=== PATIENT | female | born 1955 | race Caucasian/White ===

== ENCOUNTER 2017-02-26 13:47 | Inpatient (IN) | payer BC ==
--- NOTE | ~2017-02-26 | HP ---
History And Physical [facility] [address] [place]. [address] NAME: VAMSHI BUTLER : 59 STATUS : ADM Al PAT#: [id number] AGE: 61 ADM/REG DATE : 02/26/17 MR#: [id number] REPORT SERV DATE: 02/26/17 DICTATED BY: RADHA CHRISTIANSON DATE: 02/26/17 REPORT STATUS : Draft TRANSCRIBED BY: MODL DATE: 02/26/17 DATE OF ADMISSION: 02/26/2017 CHIEF COMPLAINT: Increasing shortness of breath for couple of months and abnormal labs at her primary care provider yesterday. HISTORY OF PRESENT ILLNESS: This is a very pleasant 61-year-old female. She has a history of hypertension, history of anxiety disorder, prior history of anemia for which she has been on iron in the past, history of degenerative joint disease, and osteoarthritis. She had a colonoscopy couple of years ago by Dr. Au, which according to the patient was normal. Presenting to [facility] after her primary care provider, Dr. Ngoc Espinal called her since she had lab work, which showed that she has been severely anemic. According to the patient, she had some blood work last year in her office and she remembered at that time, she is telling me that her hemoglobin was 9. She has been on iron in the past, but she could not tolerate because of the constipation, and as a result, she has not been on iron recently. She has progressive shortness of breath with exertion as well as some weakness, but she is denying any signs of GI bleed like hematemesis, melena, hematochezia. No red blood per rectum. No melena. No hematuria. No vaginal bleed. No other complaints. She has a blood work done at her primary care provider yesterday and she has been found profoundly anemic, and as a result, she has been sent to [facility] for further evaluation and treatment. The patient does not have any recent hospitalizations. After initial evaluation in the emergency room, Hospitalist Service has been asked for admission, further evaluation, and treatment. PAST MEDICAL HISTORY: Significant for hypertension, anxiety disorder, degenerative joint disease, osteoarthritis. PAST SURGICAL HISTORY: Tubal ligation, and left total knee replacement in 2016. SOCIAL HISTORY: Denies tobacco, alcohol, or IV drugs. FAMILY HISTORY: Significant for coronary artery disease. ALLERGIES: SHE IS ALLERGIC TO SULFA DRUGS. MEDICATIONS: At home include Abilify, aspirin, calcium, Pristiq, hydrochlorothiazide, and trazodone. REVIEW OF SYSTEMS: A 14-point review of systems has been obtained and pertinent positive has been listed into the history of present illness. Otherwise, negative except those underlying above. PHYSICAL EXAMINATION: VITAL SIGNS: The patient currently is afebrile. Blood pressure is 134/62, heart rate 90, respiratory rate 16, saturating 98% on room air. GENERAL: She is a very pleasant, well-developed, well-nourished female, in no acute History And Physical [address] [address] NAME: VAMSHI BUTLER : 59 STATUS : ADM Al PAT#: [id number] AGE: 61 ADM/REG DATE : 02/26/17 MR#: [id number] REPORT SERV DATE: 02/26/17 DICTATED BY: RADHA CHRISTIANSON DATE: 02/26/17 REPORT STATUS : Draft TRANSCRIBED BY: YULI DATE: 02/26/17 distress. She is alert and oriented x3. She is nonfocal. She follows all her commands appropriately. HEENT: Pupils are equal, round, and reactive to light. Extraocular movements intact. No JVD. No lymphadenopathy. No thyromegaly appreciated. CHEST: Bilateral air entry. Clear anteroposterior. No wheezes, crackles, or rhonchi appreciated. CARDIOVASCULAR: She has regular rate and rhythm. S1, S2 positive. No S3, no S4. No murmurs, rubs, or gallops appreciated. ABDOMEN: Soft with positive bowel sounds. Nontender. No guarding. No rebound. EXTREMITIES: No clubbing, cyanosis, or edema. NEUROLOGY: The patient is alert and oriented x3. She is nonfocal. She follows all her commands appropriately. LABORATORY DATA: Labs from today include sodium 139, potassium is 3.5, chloride 103, CO2 of 31, BUN 25, creatinine 1.31, glucose is 96. Total bilirubin is 0.3, alkaline phosphatase 91, ALT 16, AST 13. White count is 6.7, hemoglobin 5.7, hematocrit is 21, MCV 63, platelets are 448. Her INR is 1.1. Her EKG shows normal sinus rhythm with sinus arrhythmia and nonspecific T-wave abnormalities. ASSESSMENT: This is a very pleasant 61-year-old female with 1. Symptomatic anemia, unclear etiology. 2. History of depression and anxiety. 3. Mild acute kidney injury. 4. Degenerative joint disease, osteoarthritis. PLAN: 1. The patient is going to be admitted to Hospitalist Service for observation. We are going to transfuse her three units of packed red blood cells and H and H q.8 hours. Today, we are going to check all her anemia studies including her ferritin, iron, total iron-binding capacity, vitamin B12, and folic acid. Check a peripheral smear, guaiac all of her stools, and transfuse as indicated. Place her on Protonix IV b.i.d. and consult Dr. Au for further recommendation. 2. History of anxiety disorder. Continue her home medications. 3. History of hypertension. We are going to hold hydrochlorothiazide and provide p.r.n. hydralazine as needed. 4. Mild acute kidney injury. We are going to provide hydration, transfuse, and also IV fluids. We are going to check spot urine for sodium, creatinine, osmolality. Check UA and urine cultures as well. We are going to provide reasonable pain and nausea control as well as GI and DVT prophylaxis with SCDs. That has been discussed extensively with the patient. All the questions have been answered in full. Further workup and recommendation pending above. It is worthwhile to note that the patient is going to be followed by Hospitalist Service. CF/YULI History And Physical [address] [address] NAME: VAMSHI BUTLER : 59 STATUS : ADM Al PAT#: [id number] AGE: 61 ADM/REG DATE : 02/26/17 MR#: [id number] REPORT SERV DATE: 02/26/17 DICTATED BY: RADHA CHRISTIANSON DATE: 02/26/17 REPORT STATUS : Draft TRANSCRIBED BY: YULI DATE: 02/26/17 Radha Christianson M.D. / [id number] CC: Fracisco Perkins M.D. Korin Rodriguez M.D.
--- NOTE | ~2017-02-26 | DS ---
Discharge Summary [facility] [id number] [place]. [address] NAME: VAMSHI BUTLER : 59 STATUS : DIS Al PAT#: [id number] AGE: 61 ADM/REG DATE : 02/26/17 MR#: [id number] REPORT SERV DATE: 03/01/17 DICTATED BY: DATE: REPORT STATUS : Draft TRANSCRIBED BY: MODL DATE: 02/28/17 ADMISSION DATE: 02/26/2017 DISCHARGE DATE: 02/28/2017 DISCHARGE DIAGNOSES: 1. Symptomatic anemia. 2. Hypertension. 3. Asymmetric blood pressures, asymptomatic. 4. Mild LEISA. 5. History of anxiety, depression. 6. Iron deficiency anemia. 7. Osteoarthritis. PROCEDURES AND IMAGIN. 02/26/2017, portable chest x-ray showed no acute cardiopulmonary abnormality. 2. 02/28/2017, upper endoscopy shows small hiatal hernia, diffuse mildly erythematous mucosa without bleeding in the gastric body. Biopsies were taken for H. pylori and celiac. 3. 02/28/2017, colonoscopy was done with a few small-mouthed diverticula found in the sigmoid colon. Three small angioectasias were found in the cecum, and coag for hemostasis was done x3. 4. Echocardiogram was within normal limits with left ventricular ejection fraction of 62%. CONSULTATIONS: Dr. Luanne Rolle M.D. HOSPITAL COURSE: Please refer to Dr. Radha Can's H and P dated 02/26/2017 for complete details regarding patient's admission. In brief, the patient was admitted by Dr. Can for initial workup and management of her increasing shortness of breath times several months and abnormal laboratory data from her primary care provider. She is a pleasant 61-year-old female, who has a history of hypertension, anxiety disorder, history of anemia, degenerative joint disease, and osteoarthritis. During her stay, the patient's initial hemoglobin was 5.7. The patient has received 2 units of packed red blood cells and her subsequent hemoglobin has elevated to 9.2 and hematocrit 31.3. The patient was exhibiting microcytic hyperchromic anemia with minimal thrombocytosis per peripheral smear, and the patient will be discharged on iron. Note, the patient's stool for occult blood was negative. The patient had developed a mild acute kidney injury with BUN of 25, creatinine of 1.31, GFR 52, which has mildly resolved with a resultant BUN of 12, GFR of 69, and creatinine of 1.03. The patient has hypertension and hydrochlorothiazide was discontinued due to her mild acute kidney injury. It was noted during this time that the patient has approximately a 50 mmHg difference between her right arm and her left arm with blood pressures on her right side being significantly lower than those on her left side, approximately blood pressure 150/80 on the right, 190/90 on the left. It is recommended that if the patient becomes symptomatic that the patient have outpatient studies done to rule out peripheral artery disease, subclavian steal. The patient will be resumed on her hydrochlorothiazide on discharge. Extensive discussion has been given to the patient regarding use of MiraLAX or other laxatives with her iron due to the patient's noncompliance due to constipation issues in the Discharge Summary [address] [place]. [address] NAME: VAMSHI BUTLER : 59 STATUS : DIS Al PAT#: [id number] AGE: 61 ADM/REG DATE : 02/26/17 MR#: [id number] REPORT SERV DATE: 03/01/17 DICTATED BY: DATE: REPORT STATUS : Draft TRANSCRIBED BY: MODL DATE: 02/28/17 past. PHYSICAL EXAMINATION: VITAL SINGS: Blood pressure is 179/64, O2 saturation is 95% on room air, temperature is 98.8, pulse is 80, respirations are 18. HEENT: Head is atraumatic, normocephalic. Pupils are equal, round, reactive to light and accommodation. No xanthelasma. Sclerae are clear and nonicteric. Good dentition. NECK: Supple with no obvious lymphadenopathy or thyromegaly. Neck veins are flat. Trachea is midline. CARDIAC: S1 and S2 with no obvious murmurs, rubs, or gallops. LUNGS: Lungs are clear to auscultation with normal respiratory effort. GI: Abdomen is soft, nontender, with active bowel sounds in all four quadrants. Normal bowel habitus. No palpable organomegaly. EXTREMITIES: No significant edema, clubbing, or cyanosis. Pulses are present and equal bilaterally. SKIN: Skin is warm and dry, intact with normal color and turgor. NEUROPSYCH: The patient is alert and oriented x3. Pleasant and cooperative. Cranial nerves II through XII are grossly intact. No apparent anxiety or depression at this time. DISCHARGE DIET: The patient is to go home on GI diet. DISCHARGE MEDICATIONS: Abilify 2.5 mg daily, calcium 600 mg daily, Pristiq 50 mg daily, hydrochlorothiazide 25 mg daily, trazodone 100 mg p.r.n. at bedtime, and ferrous sulfate 325 mg p.o. b.i.d., vitamin C 500 mg b.i.d. Protonix 40 mg p.o. twice daily x1 month. The patient is to stay away from any type of NSAIDs, Aleve, ibuprofen, or aspirin. ALLERGIES: THE PATIENT IS ALLERGIC TO SULFA TO WHICH SHE HAS HIVES. DISCHARGE INSTRUCTIONS: The patient is to follow up with her PCP Dr. Korin Rodriguez in 7 to 10 days for CBC and BMP, and followup of asymmetric blood pressure with blood pressure on the left being greater than the right, follow up also in one month with Dr. Luanne Rolle for CBC. Should the patient have any more symptoms of shortness of breath or weakness or dizziness, the patient is to call her PCP, Dr. Rolle, or to present to the ER. Approximately 35 minutes has been spent coordinating discharge care of this patient including [id number] encounter and summarization of the discharge. DICTATED BY: YOLY Baker/YULI Jaymie Martin NP Discharge Summary [address] [address] NAME: VAMSHI BUTLER : 59 STATUS : DIS Al PAT#: [id number] AGE: 61 ADM/REG DATE : 02/26/17 MR#: [id number] REPORT SERV DATE: 03/01/17 DICTATED BY: DATE: REPORT STATUS : Draft TRANSCRIBED BY: YULI DATE: 02/28/17 / [id number] CC: Jeremi Alford M.D.
--- NOTE | ~2017-02-26 | EGD ---
EGD REPORT [facility] [address] [place] [address] NAME: VAMSHI BUTLER : 59 STATUS : ADM Al PAT#: [id number] AGE: 61 ADM/REG DATE : 02/26/17 MR#: [id number] REPORT SERV DATE: 02/28/17 DICTATED BY: DATE: REPORT STATUS : Draft TRANSCRIBED BY: [employer] DATE: 02/28/17 [facility] Patient Name: Vamshi Butler Date of : 1955 Attending MD: ANURADHA PAUL MD Procedure Date No Time: 02/28/2017 Procedure: Colonoscopy Indications: Iron deficiency anemia secondary to chronic blood loss, Iron deficiency anemia Referring MD: HONORIO BUTCHER Medicines: Monitored Anesthesia Care Complications: No immediate complications. Procedure: Pre-Anesthesia Assessment: - ASA Grade Assessment: III - A patient with severe systemic disease. After I obtained informed consent, the scope was passed under direct vision. Throughout the procedure, the patient's blood pressure, pulse, and oxygen saturations were monitored continuously. The PCF [id number] was introduced through the anus and advanced to the terminal ileum. The colonoscopy was performed without difficulty. The patient tolerated the procedure well. The quality of the bowel preparation was excellent. Findings: The perianal and digital rectal examinations were normal. A few small-mouthed diverticula were found in the sigmoid colon. Three small angioectasias were found in the cecum. Coagulation for hemostasis using argon beam at 0.5 liters/minute and 15 anthony was successful. No other significant abnormalities were identified in a careful examination of the remainder of the colon. The terminal ileum appeared normal. There is no endoscopic evidence of mass, polyps or ulcerations in the entire colon. No additional abnormalities were found on retroflexion. Impression: - Diverticulosis in the sigmoid colon. - Three colonic angioectasias. Treated with thermal therapy. - The examined portion of the ileum was normal. Recommendation: - Patient has a contact number available for emergencies. The signs and symptoms of potential delayed complications were discussed with the patient. Return to EGD REPORT [address] [address] NAME: VAMSHI BUTLER : 59 STATUS : ADM Al PAT#: [id number] AGE: 61 ADM/REG DATE : 02/26/17 MR#: [id number] REPORT SERV DATE: 02/28/17 DICTATED BY: DATE: REPORT STATUS : Draft TRANSCRIBED BY: [email or web address] DATE: 02/28/17 normal activities tomorrow. Written discharge instructions were provided to the patient. - Regular diet. - Return patient to hospital [facility] for possible discharge same day. - Continue present medications. - No aspirin, ibuprofen, naproxen, or other non-steroidal anti-inflammatory drugs. - Okay to d/c PPI. Agree with iron supplementation. Follow up CBC in 1 mo. at my office then every 3 mos. Procedure Code(s): --- Professional --- 70770, Colonoscopy, flexible, proximal to splenic flexure; with control of bleeding (eg, injection, bipolar cautery, unipolar cautery, laser, heater probe, stapler, plasma certified technician) Diagnosis Code(s): --- Professional --- K57.30, Diverticulosis of large intestine without perforation or abscess without bleeding K55.20, Angiodysplasia of colon without hemorrhage D50.0, Iron deficiency anemia secondary to blood loss (chronic) D50.9, Iron deficiency anemia, unspecified CPT copyright 2013 [employer]. All rights reserved. The codes documented in this report are preliminary and upon measurement operator review may be revised to meet current compliance requirements. ANURADHA PAUL MD 02/28/2017 9:46 AM This report has been signed electronically. Number of Addenda: 0 Note Initiated On: 02/28/2017 9:00 AM Scope Withdrawal Time 0 hours 12 minutes 35 seconds [address] [place] [address]
--- NOTE | ~2017-02-26 | CN ---
Consultation Report [facility] [address] [place]. [address] NAME: VAMSHI BUTLRE : 59 STATUS : ADM Al PAT#: [id number] AGE: 61 ADM/REG DATE : 02/26/17 MR#: [id number] REPORT SERV DATE: 02/27/17 DICTATED BY: KERRY CA DATE: 02/27/17 REPORT STATUS : Draft TRANSCRIBED BY: MODL DATE: 02/27/17 GI CONSULTATION. DATE OF CONSULTATION: 02/27/2017 REASON FOR CONSULTATION: Evaluation and management of shortness of breath and abnormal laboratory values. HISTORY OF PRESENT ILLNESS: Ms Butler is a 61-year-old female patient, who has been seen by Dr. Jonatan Au in the past, who presents with a chief complaint of abnormal laboratory values obtained at her primary care physician's office on 02/25/2017. She states that she has had a notable history of an eight to nine months progressive shortness of breath. She reports that she was recently on a trip to the [place] with friends and could not "keep up with them." She came home and went to see her primary care physician as she was concerned this could be cardiac related as she has a very strong history of coronary artery disease in both of her parents. She was seen, laboratory values were obtained, and she had a notable hemoglobin in the 6 range. She was directed to [facility] Emergency Room for further evaluation. On assessment here, she had a hemoglobin noted to be 5.7, with hematocrit of 21.0. She has been given 3 units of packed red blood cells. She reports in regard to her GI health, she has had no change in her bowel habits. She has not observed any dark tarry stools or bright red blood per rectum. She has had no heartburn, indigestion, or trouble swallowing. No weight loss. She states that she has actually gained some weight. Her last colonoscopy was done on 02/16/2014, this was for screening purposes. She had findings on that exam of normal ilium. She had one single nonbleeding colonic angiodysplastic lesion, and nonbleeding internal hemorrhoids. She has never had an EGD. She denies any excessive NSAID use. She takes a daily baby aspirin. I have discussed with her EGD and colonoscopy, inpatient versus outpatient. She is adamant that she had endoscopy done in the hospital since she is "already here." I have discussed with her the risks, benefits, alternatives, and complications at length to include but not limited to risk of bleeding, perforation, infection, reaction to medication, as well as cardiac pulmonary side effects. She consents to proceed. She states she has a history of chronic anemia prior, she had been on oral iron which she could not tolerate secondary to constipation. PAST MEDICAL HISTORY: Hypertension, anxiety disorder, degenerative joint disease, osteoarthritis, and colonic angiodysplasias. PAST SURGICAL HISTORY: Includes a tubal ligation and left total knee replacement. 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 She lives independently. Denies tobacco. She states social alcohol, no illicit drugs. ALLERGIES: LISTED TO SULFA WHICH CAUSES HIVES. Consultation Report [facility] [id number] [place]. [address] NAME: VAMSHI BUTLER : 59 STATUS : ADM Al PAT#: [id number] AGE: 61 ADM/REG DATE : 02/26/17 MR#: [id number] REPORT SERV DATE: 02/27/17 DICTATED BY: KERRY CA DATE: 02/27/17 REPORT STATUS : Draft TRANSCRIBED BY: YULI DATE: 02/27/17 HOME MEDICATIONS: Consist of Abilify, aspirin, Caltrate, Pristiq, hydrochlorothiazide, and Desyrel. REVIEW OF SYSTEMS: A 10-point review of systems has been obtained. Pertinent positives being addressed in the history of present illness. PHYSICAL EXAMINATION: VITAL SIGNS: Temperature is 98.7, pulse 71, respirations 20, and blood pressure 162/79. NEUROLOGIC: Reveals an alert female, sitting up in bed with no focal deficits. GENERAL: She is cooperative. She is in no acute distress. She is awake, alert, and oriented x3. She has obese body habitus. HEAD, EARS, EYES, NOSE, AND THROAT: Anicteric. Pupils are equal, round, and reactive to light accommodation. Normocephalic and atraumatic. NECK: No JVD. No palpable nodes. Supple. LUNGS: Clear anteriorly with normal respiratory effort exhibited. Equal expansion. CARDIOVASCULAR SYSTEM: Regular rate and rhythm. S1 and S2. No murmurs, rubs, gallops, S3, or S4 appreciated. ABDOMEN: Soft, nontender, and nondistended. Obese. No rebound, guarding, or organomegaly appreciated on exam. EXTREMITIES: No edema. Normal distal pulses. SKIN: Warm, dry, and intact. PERTINENT LABORATORY DATA: Sodium is 139, potassium is 3.5, BUN is 25, and creatinine 1.31. White count 6.7, hemoglobin 5.7, and hematocrit 21.0. INR of 1.1. Iron 108. Iron binding capacity 408, ferritin is 3, folate 6.8, and B12 of 305. TSH 2.6. ASSESSMENT: 1. Severe symptomatic anemia. 2. Acute kidney injury. 3. History of colonic angiodysplasia. PLAN: 1. Clear liquid diet. 2. N.p.o. after midnight. 3. GoLYTELY bowel prep. 4. EGD and colonoscopy on 02/28/2017. 5. Recheck labs. Trend H and H. 6. Transfuse additional packed red blood cells if needed. We will follow. DANTE/YULI [place] Consultation Report [address] [place]. [address] NAME: VAMSHI BUTLER : 59 STATUS : ADM Al PAT#: [id number] AGE: 61 ADM/REG DATE : 02/26/17 MR#: [id number] REPORT SERV DATE: 02/27/17 DICTATED BY: KERRY CA DATE: 02/27/17 REPORT STATUS : Draft TRANSCRIBED BY: YULI DATE: 02/27/17 WEN [place] / [id number] CC: Ellie Chapin M.D.
--- NOTE | ~2017-02-26 | EGD ---
EGD REPORT [facility] [address] [place] [id number] NAME: VAMSHI BUTLER : 59 STATUS : ADM Al PAT#: [id number] AGE: 61 ADM/REG DATE : 02/26/17 MR#: [id number] REPORT SERV DATE: 02/28/17 DICTATED BY: DATE: REPORT STATUS : Draft TRANSCRIBED BY: [employer] DATE: 02/28/17 [facility] Patient Name: Vamshi Butler Date of : 1955 Attending MD: ANURADHA PAUL MD Procedure Date No Time: 02/28/2017 Procedure: Upper GI endoscopy Indications: Iron deficiency anemia secondary to chronic blood loss, Iron deficiency anemia Referring MD: HONORIO BUTCHER Medicines: Monitored Anesthesia Care Complications: No immediate complications. Procedure: Pre-Anesthesia Assessment: - ASA Grade Assessment: III - A patient with severe systemic disease. After obtaining informed consent, the endoscope was passed under direct vision. Throughout the procedure, the patient's blood pressure, pulse, and oxygen saturations were monitored continuously. The GIF [id number] was introduced through the mouth, and advanced to the third part of duodenum. The upper GI endoscopy was accomplished without difficulty. The patient tolerated the procedure well. Findings: A small hiatus hernia was present. No other significant abnormalities were identified in a careful examination of the esophagus. There is no endoscopic evidence of Patton's esophagus, areas of erosion, ulcerations or varices in the entire esophagus. Diffuse mildly erythematous mucosa without bleeding was found in the gastric body. No other significant abnormalities were identified in a careful examination of the stomach. There is no endoscopic evidence of mucosal abnormalities, ulceration, varices, angioectasia, Dieulafoy lesions or portal hypertension gastropathy in the entire examined stomach, consistent wit atrophic gastritis. A scant amount of heme was noted at the pylorus, which was lavaged and evaluated, but this appeared to be due to the endoscope passage. No active bleeding seen and no underlying AVM identified. Biopsies were taken with a cold forceps for Helicobacter pylori testing. The examined duodenum was normal. Biopsies were taken with a cold forceps for evaluation of celiac disease. There is no endoscopic evidence of bleeding, mucosal abnormalities, ulceration or angioectasia in the entire examined duodenum. EGD REPORT [place] [id number] [facility] [place]. [address] NAME: VAMSHI BUTLER : [birth year] STATUS : ADM Al PAT#: [id number] AGE: 61 ADM/REG DATE : 02/26/17 MR#: [id number] REPORT SERV DATE: 02/28/17 DICTATED BY: DATE: REPORT STATUS : Draft TRANSCRIBED BY: [employer] DATE: 02/28/17 The cardia and gastric fundus were normal on retroflexion. Impression: - Hiatus hernia. - Erythematous mucosa in the gastric body. - Normal examined duodenum. Biopsied. - Biopsies were taken with a cold forceps for Helicobacter pylori testing. Recommendation: - Patient has a contact number available for emergencies. The signs and symptoms of potential delayed complications were discussed with the patient. Return to normal activities tomorrow. Written discharge instructions were provided to the patient. - Regular diet. - Discharge patient to home. - No aspirin, ibuprofen, naproxen, or other non-steroidal anti-inflammatory drugs. - Await pathology results. - See colonoscopy report Procedure Code(s): --- Professional --- 15112, Esophagogastroduodenoscopy, flexible, transoral; with biopsy, single or multiple Diagnosis Code(s): --- Professional --- K44.9, Diaphragmatic hernia without obstruction or gangrene K31.9, Disease of stomach and duodenum, unspecified D50.0, Iron deficiency anemia secondary to blood loss (chronic) D50.9, Iron deficiency anemia, unspecified CPT copyright 2013 [employer]. All rights reserved. The codes documented in this report are preliminary and upon auditing coder review may be revised to meet current compliance requirements. ANURADHA PAUL MD 02/28/2017 9:41 AM This report has been signed electronically. Number of Addenda: 0 Note Initiated On: 02/28/2017 8:56 AM Scope Withdrawal Time 0 hours 0 minutes 0 seconds EGD REPORT [facility] [address] [id number] NAME: VAMSHI BUTLER : [birth year] STATUS : ADM Al PAT#: [id number] AGE: 61 ADM/REG DATE : 02/26/17 MR#: [id number] REPORT SERV DATE: 02/28/17 DICTATED BY: DATE: REPORT STATUS : Draft TRANSCRIBED BY: [employer] DATE: 02/28/17 BARI Price [phone]
[2017-02-26 14:16] LABS: BASOPHILS 1.1 %; BASOPHILS ABSOLUTE 0.07 10/3/uL (0.0-0.16); EOSINOPHILS 7.2 %; EOSINOPHILS ABSOLUTE 0.48 10/3/uL (0.0-0.53); HEMOGLOBIN 5.7 g/dL (12.0-16.0); IMMATURE GRANULOCYTES 0.3 %; IMMATURE GRANULOCYTES ABSOLUTE 0.02 10/3/uL (0.0-0.11); LYMPHOCYTES 19.7 %; LYMPHOCYTES ABSOLUTE 1.31 10/3/uL (0.67-4.30); MEAN CORPUS HGB CONC 27.1 g/dL (32.0-36.0); MEAN CORPUSCULAR HEMOGLOB 17.2 pg (26.0-34.0); MEAN CORPUSCULAR VOLUME 63.4 fL (80-100); MEAN PLATELET VOLUME 8.4 fL (9.2-13.0); MONOCYTES 6.2 %; MONOCYTES ABSOLUTE 0.41 10/3/uL (0.21-1.20); NEUTROPHILS 65.5 %; NEUTROPHILS ABSOLUTE 4.37 10/3/uL (2.02-8.40); PLATELET COUNT 448 10/3/uL (150-400); RBC DISTRIBUTION WIDTH 19.9 % (12.0-16.0); RED CELL COUNT 3.31 10/6/uL (4.0-5.6); WHITE BLOOD CELLS 6.7 10/3/uL (4.5-10.5)
[2017-02-26 14:17] LABS: MANUAL DIFF NO %
[2017-02-26 14:26] LABS: INTERNATIONAL NORMAL RATI 1.1 UNITS (-); PARTIAL THROMBO TIME 30.2 SEC (22.5-37.2); PROTIME (NOT ORD) 13.9 SEC (12.0-14.5)
[2017-02-26 14:31] LABS: A/G RATIO 1.1 (0.7-1.9); ALBUMIN 3.9 G/DL (3.5-5.0); ALKALINE PHOSPHATASE 91 U/L (45-117); BUN (BLOOD UREA NITROGEN) 25 MG/DL (6-23); CALCIUM, SERUM 9.6 MG/DL (8.5-10.4); CHLORIDE, SERUM 103 MMOL/L (96-112); CO2 (CARBON DIOXIDE) 31 MMOL/L (24-34); CREATININE 1.31 MG/DL (0.55-1.02); GFR AFRICAN AMERICAN 52 ML/MIN (>=60); GFR NON AFRICAN AMERICAN 44 ML/MIN (>=60); GLOBULIN 3.5 G/DL (2.5-4.1); GLUCOSE, SERUM 96 MG/DL (60-99); POTASSIUM, SERUM 3.5 MMOL/L (3.5-5.3); SGOT(AST) 13 U/L (5-40); SGPT(ALT) 16 U/L (5-65); SODIUM, SERUM 139 MMOL/L (135-148); TOTAL BILIRUBIN 0.3 MG/DL (0-1.2); TOTAL PROTEIN 7.4 G/DL (6.0-8.5)
[2017-02-26 14:33] LABS: ANISOCYTOSIS 1+ (5-10/OIF) (0-5/OIF); HYPOCHROMIA 3+ (>30/OIF) (0-2/OIF); MICROCYTES 4+ (>50/OIF) (0-5/OIF); PLATELET ESTIMATE SLT INC (ADEQUATE); RBC MORPHOLOGY ABN (NORMAL)
[2017-02-26] MEDS ORDERED: HYDROCHLOROT25 MG PO (16:50)
[2017-02-26] MEDS ORDERED: PRISTIQ50 MG PO (16:50)
[2017-02-26] MEDS ORDERED: TRAZ100 PO (16:52)
[2017-02-26] MEDS ORDERED: ABILIFY5 PO (16:53)
[2017-02-26] MEDS ORDERED: ASAB PO (16:53)
[2017-02-26] MEDS ORDERED: CALTRA600D PO (16:54)
[2017-02-26 23:38] LABS: INTERNATIONAL NORMAL RATI 1.1 UNITS (-); PROTIME (NOT ORD) 14.4 SEC (12.0-14.5)
[2017-02-26 23:42] LABS: PARTIAL THROMBO TIME 22.7 SEC (22.5-37.2)
[2017-02-26 23:44] LABS: B NATRIURETIC PEPTIDE (BNP) 22.8 PG/ML (< 100.0)
[2017-02-27 00:04] LABS: FERRITIN 3 NG/ML (8-252); FREE T4 1.08 NG/DL (0.76-1.46); IRON BINDING CAPACITY 408 MCG/DL (225-410); IRON, SERUM 108 MCG/DL (35-150); PHOSPHORUS, SERUM 2.8 MG/DL (2.5-4.5); TROPONIN I <0.02 NG/ML (<0.05)
[2017-02-27 00:13] LABS: FOLATE 6.8 NG/ML (>5.2)
[2017-02-27 04:43] LABS: ASCORBIC ACID (UR NOT ORDER) NEG (NEG); BILIRUBIN, URINE NEGATIVE (NEG); KETONE, URINE NEGATIVE (NEG); LEUKOCYTE ESTERASE(NOT OR LARGE (NEG); WBC (NOT ORDERED) (RFLEX) 32 (0-5)
[2017-02-27 07:40] LABS: GLYCOHEMOGLOBIN (HbA1c) 5.2 % (4.7-6.1)
[2017-02-27 08:40] LABS: BASOPHILS 0.9 %; BASOPHILS ABSOLUTE 0.05 10/3/uL (0.0-0.16); EOSINOPHILS 8.6 %; IMMATURE GRANULOCYTES 0.7 %; IMMATURE GRANULOCYTES ABSOLUTE 0.04 10/3/uL (0.0-0.11); LYMPHOCYTES 17.6 %; LYMPHOCYTES ABSOLUTE 1.02 10/3/uL (0.67-4.30); MEAN PLATELET VOLUME 8.4 fL (9.2-13.0); MONOCYTES 8.3 %; MONOCYTES ABSOLUTE 0.48 10/3/uL (0.21-1.20); NEUTROPHILS 63.9 %; NEUTROPHILS ABSOLUTE 3.71 10/3/uL (2.02-8.40); PLATELET COUNT 406 10/3/uL (150-400); RBC DISTRIBUTION WIDTH 22.8 % (12.0-16.0); WHITE BLOOD CELLS 5.8 10/3/uL (4.5-10.5)
[2017-02-27 08:41] LABS: INTERNATIONAL NORMAL RATI 1.1 UNITS (-); PROTIME (NOT ORD) 14.3 SEC (12.0-14.5)
[2017-02-27 08:42] LABS: HEMATOCRIT 30.1 % (36.0-48.0); HEMOGLOBIN 8.9 g/dL (12.0-16.0); MEAN CORPUS HGB CONC 29.6 g/dL (32.0-36.0); MEAN CORPUSCULAR HEMOGLOB 20.5 pg (26.0-34.0); MEAN CORPUSCULAR VOLUME 69.4 fL (80-100); RED CELL COUNT 4.34 10/6/uL (4.0-5.6)
[2017-02-27 08:43] LABS: MANUAL DIFF NO %
[2017-02-27 08:47] LABS: BUN (BLOOD UREA NITROGEN) 18 MG/DL (6-23); CALCIUM, SERUM 8.6 MG/DL (8.5-10.4); CHLORIDE, SERUM 106 MMOL/L (96-112); CO2 (CARBON DIOXIDE) 30 MMOL/L (24-34); CREATININE 1.01 MG/DL (0.55-1.02); GFR AFRICAN AMERICAN 71 ML/MIN (>=60); GFR NON AFRICAN AMERICAN 61 ML/MIN (>=60); GLUCOSE, SERUM 87 MG/DL (60-99); POTASSIUM, SERUM 3.5 MMOL/L (3.5-5.3); SODIUM, SERUM 144 MMOL/L (135-148)
[2017-02-27 09:13] LABS: PLATELET ESTIMATE SLT INC (ADEQUATE); POLYCHROMASIA 1+ (2-5/OIF) (0-1/OIF)
[2017-02-27 09:42] LABS: SMEAR FOR ABNORMAL CELLS SEE PATHOLOGY REPORT
[2017-02-27 16:28] LABS: HEMATOCRIT 30.3 % (36.0-48.0); HEMOGLOBIN 9.1 g/dL (12.0-16.0)
[2017-02-28 00:57] LABS: POTASSIUM, SERUM 3.3 MMOL/L (3.5-5.3)
[2017-02-28 05:17] LABS: BASOPHILS 0.7 %; BASOPHILS ABSOLUTE 0.05 10/3/uL (0.0-0.16); EOSINOPHILS 6.8 %; EOSINOPHILS ABSOLUTE 0.52 10/3/uL (0.0-0.53); HEMATOCRIT 31.3 % (36.0-48.0); HEMOGLOBIN 9.2 g/dL (12.0-16.0); IMMATURE GRANULOCYTES 0.4 %; IMMATURE GRANULOCYTES ABSOLUTE 0.03 10/3/uL (0.0-0.11); LYMPHOCYTES 17.9 %; LYMPHOCYTES ABSOLUTE 1.36 10/3/uL (0.67-4.30); MEAN CORPUS HGB CONC 29.4 g/dL (32.0-36.0); MEAN CORPUSCULAR HEMOGLOB 20.6 pg (26.0-34.0); MEAN CORPUSCULAR VOLUME 70.2 fL (80-100); MEAN PLATELET VOLUME 8.9 fL (9.2-13.0); MONOCYTES 7.6 %; MONOCYTES ABSOLUTE 0.58 10/3/uL (0.21-1.20); NEUTROPHILS 66.6 %; NEUTROPHILS ABSOLUTE 5.06 10/3/uL (2.02-8.40); PLATELET COUNT 431 10/3/uL (150-400); RBC DISTRIBUTION WIDTH 23.3 % (12.0-16.0); RED CELL COUNT 4.46 10/6/uL (4.0-5.6); WHITE BLOOD CELLS 7.6 10/3/uL (4.5-10.5)
[2017-02-28 05:18] LABS: MANUAL DIFF NO %
[2017-02-28 05:27] LABS: BUN (BLOOD UREA NITROGEN) 12 MG/DL (6-23); CALCIUM, SERUM 8.8 MG/DL (8.5-10.4); CHLORIDE, SERUM 105 MMOL/L (96-112); CO2 (CARBON DIOXIDE) 30 MMOL/L (24-34); CREATININE 1.03 MG/DL (0.55-1.02); GFR AFRICAN AMERICAN 69 ML/MIN (>=60); GFR NON AFRICAN AMERICAN 59 ML/MIN (>=60); GLUCOSE, SERUM 94 MG/DL (60-99); POTASSIUM, SERUM 3.6 MMOL/L (3.5-5.3); SODIUM, SERUM 139 MMOL/L (135-148)
[2017-02-28 05:34] LABS: PLATELET ESTIMATE SLT INC (ADEQUATE); POLYCHROMASIA 1+ (2-5/OIF) (0-1/OIF)
[2017-02-28 08:29] LABS: HEMATOCRIT 29.8 % (36.0-48.0); HEMOGLOBIN 8.8 g/dL (12.0-16.0)
[2017-02-28] MEDS ORDERED: VITC500 PO (12:51)
[2017-02-28] MEDS ORDERED: FESO4 PO (12:51)
[2017-02-28] MEDS ORDERED: PROTONIX PO (12:52)
== END 2017-02-28 13:36 | disposition home or self-care (01) | DRG 812 ==
LOC: ER 13:47 → CDU1 19:23
PROVIDERS: Emergency Medicine; Internal Medicine; Internal Medicine Gastroenterology; Nurse Practitioner Family
PROC: 30233N1 Transfusion of Nonautologous Red Blood Cells into Peripheral Vein, Percutaneous Approach (ICD-10-PCS; 2017-02-26)
PROC: 0D5H8ZZ Destruction of Cecum, Via Natural or Artificial Opening Endoscopic (ICD-10-PCS; principal; 2017-02-28 08:00)
PROC: 0DB68ZX Excision of Stomach, Via Natural or Artificial Opening Endoscopic, Diagnostic (ICD-10-PCS; 2017-02-28 08:00)
DX: D50.9 Iron deficiency anemia, unspecified (principal); N17.9 Acute kidney failure, unspecified; F41.9 Anxiety disorder, unspecified; F32.9 Major depressive disorder, single episode, unspecified; M19.90 Unspecified osteoarthritis, unspecified site; I12.9 Hypertensive chronic kidney disease with stage 1 through stage 4 chronic kidney disease, or unspecified chronic kidney disease; N18.2 Chronic kidney disease, stage 2 (mild)
CPT/HCPCS: 36415; 36430; 71010; 80048; 80053; 81001; 82140; 82272; 82533; 82570; 82607; 82728; 82746; 83036; 83540; 83550; 83615; 83735; 83880; 83935; 84100; 84132; 84300; 84439; 84443; 84484; 85014; 85018; 85025; 85610; 85730; 86850; 86900; 86901; 86920; 87086; 88305; 93005; 93306; 99285; A9270-GY; C9113; J0360; J1940; P9016